=== PATIENT | female | born 1935 | race Caucasian/White ===

== ENCOUNTER → 2016-07-22 | Outpatient (CLI) | payer MEDICARE, OTHER ==
[~2016-07-22] MED LIST: ACET-2267 PO; ASCO-262 PO; ASP81CT PO; ASP81TEC PO; ATOR20TA66 PO; C250T PO; CALC-80 PO; CALC1TAB18 PO; CHOL2000 PO; CPR500T PO; CRV6.25T GT; CRV6.25T PO; FAMO20TA5 PO; FELO2.5T17 PO; FENO145T2 PO; FENO200C PO; GEMF600T3 PO; HYDR-3816 PO; HYDR118S10 PO; IBUP-2055 PO; LEVO500T69 PO; MECL25TA56 PO; NITR-65 PO; NTR.4SL SL; OMG1KC PO; ONDA-42 SL; ONDAN4ODT PO; OXYC-12 PO; OXYC-197 PO; PARO20TA57 PO; PEG4000S9 PO; RAMI2.5C PO; SULF-222 PO; VITAMIN C 1000MG PO
--- NOTE | 2016-07-22 13:52 | Diagnostic Imaging Report ---
INDICATION: Right shoulder injury. FINDINGS: AP, oblique and trans-scapular views of the right shoulder reveal surgical anchors in the lateral humeral head. There is [id number]-uc-rwxihegi acromioclavicular degenerative spurring. There is also mild marginal spurring about the glenohumeral joint with slight irregularity along the inferior cortex of the glenoid process. Otherwise, there is no evidence of fracture or other acute abnormality. IMPRESSION: There is degenerative spurring surrounding the shoulder girdle with mild cortical irregularity along the inferior margin of the glenoid process which may represent avulsion fracture. Clinical correlation with site of pain would be useful. If indicated, cross-sectional imaging could be performed for further assessment. Dictated by: Dictated on workstation # [id number]
== END ==
LOC: RAD 12:40
PROVIDERS: ATTEND Internal Medicine
DX: S49.91XA Unspecified injury of right shoulder and upper arm, initial encounter (principal); X58.XXXA Exposure to other specified factors, initial encounter; Y99.8 Other external cause status
CPT/HCPCS: 73030

== ENCOUNTER 2017-01-27 10:57 | Outpatient (CLI) | payer MEDICARE, OTHER ==
[~2017-01-27] VITALS: Ht 170.2 cm; Wt 79.4 kg
[2017-01-27] MEDS ORDERED: FAMO20TA3 PO (11:20)
[2017-01-27] MEDS ORDERED: ASPI-999 PO (11:20)
[2017-01-27] MEDS ORDERED: ASCO10006 PO (11:20)
[2017-01-27] MEDS ORDERED: ATOR40TA70 PO (11:20)
[2017-01-27] MEDS ORDERED: ALLO100T PO (11:20)
[2017-01-27] MEDS ORDERED: CARV6.252 PO (11:20)
== END 2017-01-27 11:21 ==
LOC: PREOP 10:57
PROVIDERS: ATTEND Surgery
DX: Z01.818 Encounter for other preprocedural examination (principal); K62.5 Hemorrhage of anus and rectum; Z80.0 Family history of malignant neoplasm of digestive organs

== ENCOUNTER 2017-01-31 08:25 | Day surgery (SDC) | payer MEDICARE, OTHER ==
[2017-01-30 08:48] VITALS: BP 139/73
[~2017-01-31] VITALS: Ht 170.2 cm; Wt 79.4 kg
[~2017-01-31 08:25] MED LIST changes: +ALLO100T PO; +ASCO10006 PO; +ASPI-999 PO; +ATOR40TA70 PO; +CARV6.252 PO; +FAMO20TA3 PO
[2017-01-31] MEDS ORDERED: NS IV 500 ML 500 ML IV ONE (08:30)
[2017-01-31] MEDS ORDERED: fentaNYL INJECTION 100 MCG/2 ML AMP ONE (09:00)
[2017-01-31] MEDS ORDERED: MIDAZOLAM 2 MG/2 ML (VERSED) VIAL ONE ×3 (09:00)
[2017-01-31] MEDS: fentaNYL INJECTION 100 MCG/2 ML AMP IVP PRN ×2 (09:07→09:16)
[2017-01-31] MEDS: MIDAZOLAM 2 MG/2 ML (VERSED) VIAL IVP PRN ×2 (09:08→09:17)
--- NOTE | 2017-01-31 09:31 | Conscious Sedation/ASA ---
Conscious Sedation Pre-Proced Time Reviewed: 08:45 ASA Class: 2 Airway Mallampati Classification: (ute appropriate class) I. II. III, IV Lungs Heart ASA score ASA 1: a normal healthy patient ASA 2: a patient with a mild systemic disease (mid diabetes, controlled hypertension, obesity ASA 3: a patient with a severe systemic disease that limits activity (angina , COPD, prior Myocardial infarction) ASA 4: a patient with an incapacitating disease that is a constant threat to life (CHF, renal failure) ASA 5: a moribund patient not expected to survive 24 hrs. (ruptured aneurysm) ASA 6: a declared brain patient whose organs are being harvested. For emergent operations, add the letter E after the classification Grade 1 Sedation Plan: Discussed options with patient/fam Note The patient is an appropriate candidate to undergo the planned procedure, sedation, and anesthesia. The patient immediately re-assessed prior to indication. KYLE FUCHS MD Jan 31, 2017 9:31 am
--- NOTE | 2017-01-31 09:34 | Endo Procedure Record ---
Endo Procedure Report Date of Procedure Jan 31, 2017 Surgeon (s) KYLE FUCHS MD Post Procedure/Op Diagnosis 1.sigmoid diverticulosis 2. Prolapsing hemorrhoids Procedure Performed colonoscopy to cecum Rubber band ligation of hemorrhoids 2 Description of Procedure Anesthesia Type: Conscious Sedation Specimen(s) collected/removed none Description of the Procedure Indication for procedure: This lady presented with rectal bleeding and a history of hemorrhoids. In addition, she reported family history of colon cancer and a personal history of adenomatous polyps. Colonoscopy to rule out polyps and possibly address the hemorrhoids using rubber band ligation. Informed consent was obtained after reviewing the procedure in detail. Description of the procedure: She was placed in left lateral decubitus position and her vital signs were monitored. Conscious sedation was achieved using Versed and fentanyl. Examination of the perianal area revealed external hemorrhoids and multiple skin tags. Digital examination revealed a lax anal sphincter. The colonoscope was then introduced in the rectum and advanced all the way up to the cecum. It was then withdrawn slowly and the mucosa examined in a systematic fashion. Findings: Internal hemorrhoids, the source of her bleeding Sigmoid diverticulosis The hemorrhoids were managed by rubber band ligation at 3 and 7 o'clock positions. She tolerated the procedure well and was taken back to the nursing area in a stable condition. Impression: Rectal bleeding due to hemorrhoids. Rubber band ligation completed. Copies To: REGINA DAVENPORT XAVIER M MD Jan 31, 2017 9:34 am
--- NOTE | 2017-01-31 09:36 | Discharge Inst-Simple/Standard ---
Discharge Inst-Standard Discharge Medications New, Converted or Re-Newed RX: Other Patient Instructions/Follow Up Plan of Care/Instructions/FU: F/U PRN Activity as Tolerated: Yes Discharge Diet: No Restrictions KYLE FUCHS MD Jan 31, 2017 9:36 am
[2017-01-31 09:45] VITALS: BP 150/65
[2017-01-31 10:15] VITALS: BP 149/76
[2017-01-31 10:50] VITALS: BP 149/76
== END 2017-01-31 10:50 | disposition home or self-care (01) ==
LOC: ENDO 08:25
PROVIDERS: ATTEND Surgery
DX: K57.30 Diverticulosis of large intestine without perforation or abscess without bleeding (principal); K64.8 Other hemorrhoids; Z80.0 Family history of malignant neoplasm of digestive organs; Z86.010 Personal history of colon polyps; Z79.82 Long term (current) use of aspirin; Z79.899 Other long term (current) drug therapy

== ENCOUNTER 2017-03-15 12:17 | Emergency (ER) | payer MEDICARE, OTHER ==
[~2017-03-15] VITALS: Ht 167.6 cm; Wt 78.5 kg
[2017-03-15] MEDS ORDERED: MULT-1029 PO (12:36)
[2017-03-15] MEDS ORDERED: ATOR20TA66 PO (12:36)
--- NOTE | 2017-03-15 13:46 | Diagnostic Imaging Report ---
PROCEDURE: CT head, face, and cervical spine without contrast. TECHNIQUE: Multiple contiguous axial images were obtained through the head, neck, and facial bones without the use of intravenous contrast. Sagittal and coronal reformations through the cervical spine and facial bones were also performed. INDICATION: Fall. FINDINGS: CT head: There is no intracranial hemorrhage, edema or mass effect. There is a mild periventricular and deep white hypodensities compatible with chronic microvascular changes. No hydrocephalus. No extra-axial fluid collection is seen. The calvarium appears grossly unremarkable. CT face: There is a minimally displaced fracture seen along the left nasal bone. There is mild mucosal thickening in the inferior aspect of the maxillary sinuses bilaterally. The osteomeatal complexes are patent. There is no hemorrhage. No sinus wall fracture is identified. The zygomatic arches appear intact. The ethmoid air cells and frontal sinuses are clear. The sphenoidal sinuses are clear. The mastoid air cells and middle ear cavities are clear. The orbital palma are intact. Structures within the orbits appear symmetric with no hematoma or abnormality in the extraocular muscles, the optic nerves or the globes seen. There is advanced degenerative changes in the left temporomandibular joint. CT cervical spine: There is straightening of the lordotic curvature which could be related to muscle spasm or its positional. There is preserved vertebral body heights. The alignment at the posterior spinal line, at the facet joints, and at the lateral masses of C1 and C2 is satisfactory. There is no widening of the predental space. 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 This is associated with significant spinal canal stenosis reducing the AP dimension of the canal to 5.5 mm at this level. There is also a prominent disc herniation and osteophytes at C5/6 and C6-7 levels with at least mild spinal canal stenosis at these levels. There is also significant foramina stenosis, severe bilaterally at C4/5 and moderate severe bilateral at C5/6 and C3/4 levels. No fracture is seen. IMPRESSION: CT head: No intracranial hemorrhage. CT maxillofacial: Minimally displaced right nasal bone fracture. CT cervical spine: Advanced degenerative changes with suggestion of multilevel high-grade spinal canal and foramina stenosis. No fracture seen. Dictated by: Dictated on workstation # [id number]
[2017-03-15] MEDS ORDERED: CEPH-507 PO (14:07)
--- NOTE | 2017-03-15 14:07 | ED Head Injury ---
General Chief Complaint: Trauma-Non Activation Stated Complaint: FACIAL LAC FROM FALL Nursing Triage Note: pt reports she fell outside at home, she tripped et struck her nose et forehead. c/o neck et nasal pain. abrasion noted to forehead et bridge of nose. pt reports she has had epistaxis as well. denies loc. Source: patient Exam Limitations: no limitations History of Present Illness Time seen by provider: 14:03 Initial Comments To ER with reports of a fall at home. She was outside burning trash when she turned around tripped and fell striking her face on the ground. No loss of consciousness. No headache, dizziness or memory loss. No vomiting. She did have epistaxis. Occurred: just prior to arrival Severity: moderate Allergies and Home Medications Allergies Coded Allergies: Penicillins (Unverified Allergy, Intermediate, HIVES, 07/04/10) latex (Unverified Allergy, Unknown, RASH, 08/07/13) Home Medications Allopurinol 100 Mg Tablet, 100 MG PO BID, (Reported) Ascorbic Acid 1,000 Mg Tablet, 1,000 MG PO DAILY, (Reported) Aspirin 81 Mg Tab.chew, 81 MG PO DAILY, (Reported) Atorvastatin Calcium 20 Mg Tablet, 20 MG PO DAILY, (Reported) Carvedilol 6.25 Mg Tablet, 6.25 MG PO BID, (Reported) Famotidine 20 Mg Tablet, 20 MG PO HS, (Reported) Multivit-Min/FA/Lycopene/Lut 1 Each Tablet, 1 EACH PO DAILY, (Reported) Constitutional: see HPI Eyes: No Symptoms Reported Ears, Nose, Mouth, Throat: no symptoms reported Respiratory: no symptoms reported Cardiovascular: no symptoms reported Genitourinary: no symptoms reported Musculoskeletal: no symptoms reported Skin: no symptoms reported Psychiatric/Neurological: No Symptoms Reported Past Zyxpfrs-Mdewfm-Ikarem Hx Patient Social History Alcohol Use: Denies Use Recreational Drug Use: No Smoking Status: Never a Smoker Recent Foreign Travel: No Contact w/Someone Who Travel: No Recent Infectious Disease Expo: No Recent Hopitalizations: No Immunizations Up To Date Date of Pneumonia Vaccine: May 11, 2011 Date of Influenza Vaccine: Feb 16, 2017 Seasonal Allergies Seasonal Allergies: No Surgeries History of Surgeries: Yes (ROTATOR CUFF, ANKLE SURGERY FOR BROKEN BONE) Surgeries: CABG, Orthopedic, Tonsillectomy Respiratory History of Respiratory Disorde: Yes Respiratory Disorders: Pneumonia Cardiovascular History of Cardiac Disorders: Yes (CABG X5) Cardiac Disorders: High Cholesterol, Hypertension Neurological History of Neurological Disord: No Reproductive System Hx Reproductive Disorders: No Sexually Transmitted Disease: No HIV/AIDS: No Female Reproductive Disorders: Denies ACTIVITY THERAPIST History: Menopausal Gastrointestinal History of Gastrointestinal Di: No (REFLUX AT TIMES) Gastrointestinal Disorders: Gastroesophageal Reflux, Polyps Musculoskeletal History of Musculoskeletal Dis: Yes (ARTHRITIS) Musculoskeletal Disorders: Arthritis Endocrine History of Endocrine Disorders: No HEENT HEENT Disorders: Cataract Loss of Vision: Denies Hearing Impairment: Denies Cancer History of Cancer: No Psychosocial History of Psychiatric Problem: No Integumentary History of Skin or Integumenta: No Blood Transfusions History of Blood Disorders: No Adverse Reaction to a Blood Tr: No (HAS HAD BLOOD IN 1958 WITH NO PROBLEMS) Family Medical History Significant Family History: Heart Disease Physical Exam Vital Signs Vital Sign - Last 12Hours 03/15/17 12:30 Temp 98.5 Pulse 74 Resp 16 B/P (MAP) 184/81 Capillary Refill : Less Than 3 Seconds General Appearance: WD/WN, no apparent distress HEENT: PERRL/EOMI, normal ENT inspection, TMs normal, other (dried blood in the left there. This was suctioned out to evaluate the septum for hematoma. There is no hematoma seen. There is a small area of bleeding the most anterior portion of the left nasal ala.) Neck: non-tender, full range of motion Respiratory: normal breath sounds, no respiratory distress, no accessory muscle use Gastrointestinal: non tender, soft Extremities: normal range of motion, non-tender Psychiatric: alert, oriented x 3 Crainal Nerves: normal hearing, normal speech, PERRL Progress/Results/Core Measures Results/Orders Vital Signs/I&O Vital Sign - Last 12Hours 03/15/17 12:30 Temp 98.5 Pulse 74 Resp 16 B/P (MAP) 184/81 Blood Pressure Mean: 115 Departure Communication (Admissions) Progress Notes Cervical collar removed at 1400. There was a small puncture wound to the midline bridge of the nose. This was large enough that it didn't need closure so we glued this after scrubbing with saline and irrigating with the same. Impression Impression: Primary Impression: Epistaxis Additional Impression: Nasal fracture Disposition: 01 HOME, SELF-CARE Condition: Improved Departure-Patient Inst. Decision time for Depature: 14:06 Referrals: REGINA DAVENPORT DO (PCP/Family) Primary Care Physician Patient Instructions: Nose Fracture (DC) Add. Discharge Instructions: 1. Return to ER for any concerns as headache, vomiting, inability to stop the bleeding from her nose. Follow-up with Dr. Persaud from ear nose and throat for any concerns. All discharge instructions reviewed with patient and/or family. Voiced understanding. Scripts Cephalexin (Keflex) 500 Mg Capsule 500 MG PO TID, #15 CAP Prov: JOELLEN CARDONA APRN 03/15/17 JOELLEN CARDONA APRN Mar 15, 2017 14:07
[2017-03-15 14:27] VITALS: BP 166/94
== END 2017-03-15 14:28 | disposition home or self-care (01) ==
LOC: EDUNIT# 12:17 → ER 12:19
DX: S02.2XXA Fracture of nasal bones, initial encounter for closed fracture (principal); E78.00 Pure hypercholesterolemia, unspecified; I10 Essential (primary) hypertension; K21.9 Gastro-esophageal reflux disease without esophagitis; M19.90 Unspecified osteoarthritis, unspecified site; Z82.49 Family history of ischemic heart disease and other diseases of the circulatory system; Z86.010 Personal history of colon polyps; Z79.82 Long term (current) use of aspirin; Z95.1 Presence of aortocoronary bypass graft; Z90.89 Acquired absence of other organs; Z87.01 Personal history of pneumonia (recurrent); W01.10XA Fall on same level from slipping, tripping and stumbling with subsequent striking against unspecified object, initial encounter
CPT/HCPCS: 12011; 70450; 70486; 72125

== ENCOUNTER → 2018-07-03 | Outpatient (CLI) | payer MEDICARE, OTHER ==
[~2018-07-03] MED LIST changes: +CEPH-507 PO; +GEMF600T8 PO; +HYDR-34 PO; -HYDR-3816 PO; +MULT-1029 PO; -OXYC-197 PO; +OXYC1TAB87 PO
--- NOTE | 2018-07-03 12:14 | Diagnostic Imaging Report ---
INDICATION: Disorientation. TECHNIQUE: PA and lateral views of the chest were obtained. COMPARISON: 08/12/2015. FINDINGS: The heart size and pulmonary vascularity are within normal limits. There is no evidence of pneumothorax or consolidation. There is mildly increased density along the superior margin of the left pulmonary hilum. No significant pleural fluid is seen. Note is made of compression fracture deformities of mid and lower thoracic vertebrae. IMPRESSION: Small focal region of increased density along the superior margin of the left hilum. This should be further evaluated on short-term radiographic followup or possible CT imaging. There are also chronic appearing compression deformities involving thoracic vertebrae. Dictated by: Dictated on workstation # [id number]
== END ==
LOC: RAD 11:41
PROVIDERS: ATTEND Internal Medicine
DX: J98.4 Other disorders of lung (principal); M43.8X4 Other specified deforming dorsopathies, thoracic region; R07.89 Other chest pain
CPT/HCPCS: 71046

== ENCOUNTER → 2018-07-12 | Outpatient (CLI) | payer MEDICARE, OTHER ==
--- NOTE | 2018-07-12 18:05 | Diagnostic Imaging Report ---
PROCEDURE: CT chest without contrast. TECHNIQUE: Multiple contiguous axial images were obtained through the chest without the use of intravenous contrast. INDICATION: Sternal chest pain. History of previous of median sternotomy for cardiac surgery. COMPARISON: Chest radiograph 07/03/2018. FINDINGS: Patient is post sternotomy. No significant parasternal inflammatory changes or fluid collections. There appears to be bony fusion across the sternotomy. Heart size upper limits of normal with surgical changes of coronary artery bypass. No significant pericardial effusion. The thoracic aortic contour unremarkable with minimal wall calcification. Evaluation of the mediastinal structures is limited given lack of contrast. Definitive pathologically enlarged mediastinal and/or hilar lymph nodes however are not suggested. Lung centeno are clear. Minimal pleural thickening noted about the anterior aspect of left hemithorax. There is some nodularity along the minor fissure plane anteriorly in the right mid hemithorax likely of no significance. No significant pleural effusion. Stomach is moderately distended with retained gastric contents likely owing to recent meal ingestion. Rather marked likely chronic changes about the thoracic spine. This includes loss of overall vertebral body height, anteriorly wedged vertebral bodies, as well as marked thoracic spondylosis. Endplate osteophyte formation and bridging formation. Posterior elements intact and normal alignment. No high-degree osseous narrowing of the neural foramina and/or spinal canal. IMPRESSION: 1. Negative for acute abnormality about the chest. 2. Post sternotomy changes. The sternotomy margins appear unremarkable. 3. No definitive abnormality in and around the left hilum on noncontrast imaging. Dictated by: Dictated on workstation # [id number]
== END ==
LOC: RAD 12:00
PROVIDERS: ATTEND Internal Medicine
DX: R07.89 Other chest pain (principal); Z98.890 Other specified postprocedural states; Z95.1 Presence of aortocoronary bypass graft
CPT/HCPCS: 71250

== ENCOUNTER 2022-03-17 13:59 | Emergency (ER) | payer MEDICARE, OTHER ==
[~2022-03-17] VITALS: Ht 168 cm; Wt 75.7 kg
[~2022-03-17 13:59] MED LIST changes: +ASCO100024 PO; -ASCO10006 PO; -GEMF600T8 PO; +GEMF600T88 PO; -IBUP-2055 PO; +IBUP-2473 PO
[2022-03-17 14:33] LABS: BASOPHILS % (AUTO) 1 % (0-10); EOSINOPHILS # (AUTO) 0.2 10^3/uL (0.0-0.3); EOSINOPHILS % (AUTO) 3 % (0-10); HEMATOCRIT 43 % (35-52); HEMOGLOBIN 14.4 g/dL (11.5-16.0); LYMPHOCYTES # (AUTO) 1.2 10^3/uL (1.0-4.0); LYMPHOCYTES % (AUTO) 18 % (12-44); MEAN CORPUSCULAR HEMOGLOBIN 29 pg (25-34); MEAN CORPUSCULAR HGB CONC 33 g/dL (32-36); MEAN CORPUSCULAR VOLUME 88 fL (80-99); MEAN PLATELET VOLUME 11.9 fL (9.0-12.2); MONOCYTES # (AUTO) 0.9 10^3/uL (0.0-1.0); MONOCYTES % (AUTO) 14 % (0-12); NEUTROPHILS # (AUTO) 4.1 10^3/uL (1.8-7.8); NEUTROPHILS % (AUTO) 64 % (42-75); PLATELET COUNT 165 10^3/uL (130-400); WHITE BLOOD COUNT 6.4 10^3/uL (4.3-11.0)
[2022-03-17 14:49] LABS: ALBUMIN 3.8 GM/DL (3.2-4.5); POTASSIUM 4.6 MMOL/L (3.6-5.0)
[2022-03-17 14:50] LABS: CALCIUM 9.4 MG/DL (8.5-10.1)
[2022-03-17 14:51] LABS: TOTAL PROTEIN 7.2 GM/DL (6.4-8.2)
[2022-03-17 14:52] LABS: PROTHROMBIN TIME PATIENT 13.3 SEC (12.2-14.7)
[2022-03-17 14:53] LABS: BILIRUBIN,TOTAL 0.4 MG/DL (0.1-1.0)
[2022-03-17 14:55] LABS: CREATININE SERUM 1.32 MG/DL (0.60-1.30)
[2022-03-17 14:58] LABS: MAGNESIUM 1.8 MG/DL (1.6-2.4)
--- NOTE | 2022-03-17 15:09 | Diagnostic Imaging Report ---
PROCEDURE: CT head and CT cervical spine without contrast. TECHNIQUE: Multiple contiguous axial images were obtained through the brain and cervical spine without the use of intravenous contrast. Sagittal and coronal reformations through the cervical spine were then performed. Auto Exposure Controls were utilized during the CT exam to meet ALARA standards for radiation dose reduction. INDICATION: Fall. Syncopal episode. Head and neck pain. COMPARISON: 03/15/2017. FINDINGS: CT head: No large acute territorial ischemia, mass, or hemorrhage. No midline shift or mass effect. Decreased attenuation is seen in the periventricular and subcortical white matter. The ventricles and cortical sulci are prominent. The basilar cisterns are patent and unremarkable. The calvarium is intact. Mucosal thickening is seen in the bilateral maxillary sinuses and left sphenoid sinus. The mastoid air cells are clear. CT cervical spine: No acute fracture or dislocation is seen in the cervical spine. No focal osseous lesions. Vertebral body heights are well-maintained. The craniocervical junction is well-maintained. Knggdlyj-ul-iboirn degenerative changes are seen in the cervical spine with disc osteophyte complexes and uncovertebral arthropathy. Soft tissues of the neck are unremarkable. The included lung apices are clear. IMPRESSION: 1. No hemorrhage or focal intra-axial mass. No CT evidence of large acute territorial ischemia. 2. No acute fracture or dislocation in the cervical spine. 3. Paranasal sinus disease involving the bilateral maxillary sinuses and left sphenoid sinus. Dictated by: Dictated on workstation # [id number]
--- NOTE | 2022-03-17 15:10 | Diagnostic Imaging Report ---
EXAMINATION: Chest 1 view HISTORY: Chest pain. Syncopal episode. COMPARISON: 08/12/2015. FINDINGS: The lung volumes are normal. No focal consolidation is seen. No large pleural effusion or pneumothorax is seen. The cardiac silhouette is prominent with post-CABG changes. No acute osseous abnormality is seen. IMPRESSION: 1. Stable cardiomegaly. No overt pulmonary edema. Dictated by: Dictated on workstation # [id number]
[2022-03-17] MEDS ORDERED: NS IV 1000 ML 1,000 ML IV SCH (15:30)
--- NOTE | 2022-03-17 16:03 | Diagnostic Imaging Report ---
PROCEDURE: US carotid duplex, bilateral. TECHNIQUE: Multiple real-time grayscale images were obtained over the carotid arteries in various projections, bilaterally. Additional spectral analysis and color Doppler duplex images were also obtained. INDICATION: Syncope There is atherosclerotic plaque present in both carotid bifurcations. The carotid arteries are tortuous. There is no significant alteration of waveforms or velocities. The ratios appear normal. The common internal/external carotid arteries appear normal. IMPRESSION: Mild atherosclerotic changes at both carotid bifurcations but no hemodynamically significant stenosis. Parameters based on the consensus panel Monae-Scale and Doppler ultrasound criteria published March 2003, Radiology, Volume 229. DOPPLER (peak systolic velocity M/S Right Left CCA .73 .98 ICA Proximal .64 .80 ICA Mid 1.05 .84 ICA Distal 1.20 .72 RATIO 1.63 .85 ECA .98 1.07 VERT .75 .38 Dictated by: Dictated on workstation # [id number]
--- NOTE | 2022-03-17 16:27 | ED General ---
General Chief Complaint: Dizziness/Syncope Stated Complaint: SYNCOPE Nursing Triage Note: PT TO [facility] VIA [facility] W REPORTS OF SYNCOPAL EPISODE LEADING TO FALL CUSTOMER QUALITY ENGINEER. PT UNSURE WHAT TIME SHE FELL, REPORTS SHE REMEMBERS BEING ON THE TOILET D/T DIARRHEA AND THEN SHE WAS ON THE FLOOR. PT A&OX4. 20G L HAND SL INITIATED BY [facility], PATENT UPON ARRIVAL TO ED. PT C/O NECK TIGHTNESS, C-COLLAR IN PLACE. Source of Information: Patient Exam Limitations: No Limitations History of Present Illness Date Seen by Provider: Mar 17, 2022 Time Seen by Provider: 14:00 Initial Comments This 86-year-old woman presents to the emergency room via EMS after having a syncopal episode and collapse at her home. She describes congestion and upper respiratory symptoms starting yesterday. She then developed diarrhea today. While she was on the stool having diarrhea, she apparently had a syncopal episode and fell off. She did complain of some neck pain to the fire department on arrival to the home. C-collar was applied. Patient is alert and conversational. She is denying any other symptoms at this time. Family thought she had some slurred speech at the home but that does not appear to be present now. Patient has a history of syncopal episodes including episodes while on the stool. She sees Dr. Lyons in [place] for cardiology services. Her primary care provider is Dr. Torre. She denies any chest pain or shortness of breath. She is due to have a carotid ultrasound study next week but she is uncertain if she has carotid stenosis. Allergies and Home Medications Allergies Coded Allergies: Penicillins (Unverified Allergy, Intermediate, HIVES, 07/04/10) latex (Unverified Allergy, Unknown, RASH, 08/07/13) Patient Home Medication List Home Medication List Reviewed: Yes Allopurinol (Allopurinol) 100 Mg Tablet, 100 MG PO BID, (Reported) Entered as Reported by: AVINASH AWAD on 01/27/17 112 Ascorbic Acid (Vitamin C) 1,000 Mg Tablet, 1,000 MG PO DAILY, (Reported) Entered as Reported by: AVINASH AWAD on 01/27/17 1120 Aspirin (Aspirin) 81 Mg Tab.chew, 81 MG PO DAILY, (Reported) Entered as Reported by: AVINASH AWAD on 01/27/17 1120 Atorvastatin Calcium (Atorvastatin Calcium) 20 Mg Tablet, 20 MG PO DAILY, (Reported) Entered as Reported by: BRENTON FELIZ on 03/15/17 1236 Carvedilol (Carvedilol) 6.25 Mg Tablet, 6.25 MG PO BID, (Reported) Entered as Reported by: AVINASH AWAD on 01/27/17 1120 Cephalexin (Keflex) 500 Mg Capsule, 500 MG PO TID Prescribed by: JOELLEN CARDONA on 03/15/17 1407 Famotidine (Acid Livestock Yard Supervisor (FAMOTIDINE)) 20 Mg Tablet, 20 MG PO HS, (Reported) Entered as Reported by: AVINASH AWAD on 01/27/17 1120 Multivit-Min/FA/Lycopene/Lut (Centrum Silver Tablet) 1 Each Tablet, 1 EACH PO DAILY, (Reported) Entered as Reported by: BRENTON FELIZ on 03/15/17 1236 Review of Systems Review of Systems Constitutional: no symptoms reported EENTM: see HPI Respiratory: no symptoms reported Cardiovascular: no symptoms reported Gastrointestinal: see HPI Genitourinary: no symptoms reported Musculoskeletal: see HPI Skin: no symptoms reported Psychiatric/Neurological: See HPI Hematologic/Lymphatic: No Symptoms Reported Immunological/Allergic: no symptoms reported Past Sdmmcic-Ugjmkj-Esftqo Hx Patient Social History Tobacco Use?: No Use of E-Cig and/or Vaping dev: No Substance use?: No Alcohol Use?: No Immunizations Up To Date Influenza Vaccine Up-to-Date: Yes; Up-to-Date First/Initial COVID19 Vaccinat: NONE Second COVID19 Vaccination Lex: NONE Third COVID19 Vaccination Date: NONE COVID19 Vaccine Compliance Counsel: NONE Seasonal Allergies Seasonal Allergies: No Past Medical History Surgeries: Yes (ROTATOR CUFF, ANKLE SURGERY FOR BROKEN BONE) CABG, Orthopedic, Tonsillectomy Respiratory: Yes Pneumonia Cardiac: Yes (CABG X5) Coronary Artery Disease, High Cholesterol, Hypertension Neurological: No : No Reproductive Disorders: No Female Reproductive Disorders: Denies ENTERTAINMENT MUSICIAN History: Menopausal Sexually Transmitted Disease: No HIV/AIDS: No Gastrointestinal: Yes Gastroesophageal Reflux, Polyps Musculoskeletal: Yes (ARTHRITIS) Arthritis Endocrine: No Cataract Loss of Vision: Denies Hearing Impairment: Denies Cancer: No Psychosocial: No Integumentary: No Blood Disorders: No Adverse Reaction/Blood Tranf: No (HAS HAD BLOOD IN 1958 WITH NO PROBLEMS) Family Medical History Heart Disease Physical Exam Vital Signs Vital Signs - First Documented 03/17/22 14:05 Temp 36.6 Pulse 69 Resp 20 B/P (MAP) 177/129 (145) Pulse Ox 98 O2 Delivery Room Air Capillary Refill : Less Than 3 Seconds Height, Weight, BMI Height: 5'6.00" Weight: 173lbs. 0.0oz. [id number]; 26.00 BMI Method:Stated General Appearance: No Apparent Distress, WD/WN HEENT: PERRL/EOMI, Normal ENT Inspection Neck: Normal Inspection; No JVD; Other (In c-collar) Respiratory: Lungs Clear, Normal Breath Sounds, No Accessory Muscle Use Cardiovascular: Regular Rate, Rhythm, No Edema, No Murmur Gastrointestinal: Normal Bowel Sounds, Non Tender, Soft; No Distended Extremity: Normal Inspection, No Pedal Edema Neurologic/Psychiatric: Alert, Oriented x3, No Motor/Sensory Deficits, Normal Mood/Affect Skin: Normal Color, Warm/Dry Progress/Results/Core Measures Suspected Sepsis SIRS Temperature: Pulse: 69 Respiratory Rate: 20 Laboratory Tests 03/17/22 14:20: White Blood Count 6.4 Blood Pressure 177 /129 Mean: 145 Laboratory Tests 03/17/22 14:20: Creatinine 1.32H, INR Comment 1.0, Platelet Count 165, Total Bilirubin 0.4 Results/Orders Lab Results Laboratory Tests Test 03/17/22 14:20 03/17/22 14:26 Range/Units White Blood Count 6.4 4.3-11.0 10^3/uL Red Blood Count 4.89 3.80-5.11 10^6/uL Hemoglobin 14.4 11.5-16.0 g/dL Hematocrit 43 35-52 % Mean Corpuscular Volume 88 80-99 fL Mean Corpuscular Hemoglobin 29 25-34 pg Mean Corpuscular Hemoglobin Concent 33 32-36 g/dL Red Cell Distribution Width 13.3 10.0-14.5 % Platelet Count 165 130-400 10^3/uL Mean Platelet Volume 11.9 9.0-12.2 fL Immature Granulocyte % (Auto) 1 % Neutrophils (%) (Auto) 64 42-75 % Lymphocytes (%) (Auto) 18 12-44 % Monocytes (%) (Auto) 14 H 0-12 % Eosinophils (%) (Auto) 3 0-10 % Basophils (%) (Auto) 1 0-10 % Neutrophils # (Auto) 4.1 1.8-7.8 10^3/uL Lymphocytes # (Auto) 1.2 1.0-4.0 10^3/uL Monocytes # (Auto) 0.9 0.0-1.0 10^3/uL Eosinophils # (Auto) 0.2 0.0-0.3 10^3/uL Basophils # (Auto) 0.0 0.0-0.1 10^3/uL Immature Granulocyte # (Auto) 0.0 0.0-0.1 10^3/uL Prothrombin Time 13.3 12.2-14.7 SEC INR Comment 1.0 0.8-1.4 Activated Partial Thromboplast Time 35 24-35 SEC Sodium Level 135 135-145 MMOL/L Potassium Level 4.6 3.6-5.0 MMOL/L Chloride Level 101 98-107 MMOL/L Carbon Dioxide Level 21 21-32 MMOL/L Anion Gap 13 5-14 MMOL/L Blood Urea Nitrogen 23 H 7-18 MG/DL Creatinine 1.32 H 0.60-1.30 MG/DL Estimat Glomerular Filtration Rate 40 BUN/Creatinine Ratio 17 Glucose Level 188 H 70-105 MG/DL Calcium Level 9.4 8.5-10.1 MG/DL Corrected Calcium 9.6 8.5-10.1 MG/DL Magnesium Level 1.8 1.6-2.4 MG/DL Total Bilirubin 0.4 0.1-1.0 MG/DL Aspartate Amino Transf (AST/SGOT) 47 H 5-34 U/L Alanine Aminotransferase (ALT/SGPT) 27 0-55 U/L Alkaline Phosphatase 74 40-136 U/L Myoglobin 108.1 H 10.0-92.0 NG/ML Troponin I < 0.028 <0.028 NG/ML Total Protein 7.2 6.4-8.2 GM/DL Albumin 3.8 3.2-4.5 GM/DL Influenza Type A (RT-PCR) Not Detected Not Detecte Influenza Type B (RT-PCR) Not Detected Not Detecte SARS-CoV-2 RNA (RT-PCR) Detected H Not Detecte My Orders Orders - DAMON MCCARTHY MD Cbc With Automated Diff (03/17/22 14:04) Magnesium (03/17/22 14:04) Chest 1 View, Ap/Pa Only (03/17/22 14:04) Ekg Tracing (03/17/22 14:04) Comprehensive Metabolic Panel (03/17/22 14:04) Myoglobin Serum (03/17/22 14:04) Protime With Inr (03/17/22 14:04) Partial Thromboplastin Time (03/17/22 14:04) O2 (03/17/22 14:04) Monitor-Rhythm Ecg Trace Only (03/17/22 14:04) Ed Iv/Invasive Line Start (03/17/22 14:04) Troponin I [place] (03/17/22 14:04) Ct Head/Cervical Spine Wo (03/17/22 14:04) Covid 19 Inhouse Test (03/17/22 14:04) Influenza A And B By Pcr (03/17/22 14:04) Ekg Tracing (03/17/22 14:29) Us Carotid Terry Complete 20668 (03/17/22 14:30) Ns Iv 1000 Ml (Sodium Chloride 0.9%) (03/17/22 15:30) Rx-Nirmatrelvir/Ritonavir(Eua) (Rx-Paxlo (03/17/22 16:30) Vital Signs/I&O 03/17/22 03/17/22 14:05 16:48 Temp 36.6 Pulse 69 75 Resp 20 B/P (MAP) 177/129 (145) 167/80 Pulse Ox 98 O2 Delivery Room Air Capillary Refill : Less Than 3 Seconds Blood Pressure Mean: 145 Progress Note : Progress Note Patient tested positive for COVID-19. Carotid studies showed no stenosis. She was hydrated with a liter of IV fluid. EKG showed a sinus rhythm with first- degree AV block. We discussed the opportunity for Paxlovid. Patient excepted and the prescription was dispensed in the ER. Patient was stable for discharge home. ECG EKG #1: EKG Time: 14:22 Rate: 68 Rhythm: Normal Sinus Intervals: Normal ECG Impression: Normal Comment Probable sinus rhythm with no ischemic ST elevation or depression. No significant change from prior. No axis deviation. First-degree AV block. EKG #2: EKG Time: 14:24 Rate: 68 Rhythm: Normal Sinus Comment Probable sinus rhythm with no ST elevation or depression. No significant change from prior. No axis deviation. First-degree AV block. Diagnostic Imaging Diagonstic Imaging: Xray Plain Films/CT/US/NM/MRI: chest Comments NAME: LUIS FERNANDO YOUNG [employer] REC#: [id number] PT STATUS: REG ER : 1935 PHYSICIAN: DAMON MCCARTHY MD ADMIT DATE: 03/17/22/ER Signed Date of Exam:03/17/22 CHEST 1 VIEW, AP/PA ONLY EXAMINATION: Chest 1 view HISTORY: Chest pain. Syncopal episode. COMPARISON: 08/12/2015. FINDINGS: The lung volumes are normal. No focal consolidation is seen. No large pleural effusion or pneumothorax is seen. The cardiac silhouette is prominent with post-CABG changes. No acute osseous abnormality is seen. IMPRESSION: 1. Stable cardiomegaly. No overt pulmonary edema. Dictated by: Dictated on workstation # [id number] Dict: 03/17/22 1504 Trans: 03/17/[address] [facility] [id number] Interpreted by: MITZI LERMA DO Electronically signed by: MITZI LERMA DO 03/17/22 1515 Diagonstic Imaging: CT Plain Films/CT/US/NM/MRI: c-spine, head Comments NAME: LUIS FERNANDO YOUNG [employer] REC#: [id number] PT STATUS: REG ER : 1935 PHYSICIAN: DAMON MCCARTHY MD ADMIT DATE: 03/17/22/ER Signed Date of Exam:03/17/22 CT HEAD/CERVICAL SPINE WO PROCEDURE: CT head and CT cervical spine without contrast. TECHNIQUE: Multiple contiguous axial images were obtained through the brain and cervical spine without the use of intravenous contrast. Sagittal and coronal reformations through the cervical spine were then performed. Auto Exposure Controls were utilized during the CT exam to meet ALARA standards for radiation dose reduction. INDICATION: Fall. Syncopal episode. Head and neck pain. COMPARISON: 03/15/2017. FINDINGS: CT head: No large acute territorial ischemia, mass, or hemorrhage. No midline shift or mass effect. Decreased attenuation is seen in the periventricular and subcortical white matter. The ventricles and cortical sulci are prominent. The basilar cisterns are patent and unremarkable. The calvarium is intact. Mucosal thickening is seen in the bilateral maxillary sinuses and left sphenoid sinus. The mastoid air cells are clear. CT cervical spine: No acute fracture or dislocation is seen in the cervical spine. No focal osseous lesions. Vertebral body heights are well-maintained. The craniocervical junction is well-maintained. Wrhsvzsa-pn-socyck degenerative changes are seen in the cervical spine with disc osteophyte complexes and uncovertebral arthropathy. Soft tissues of the neck are unremarkable. The included lung apices are clear. IMPRESSION: 1. No hemorrhage or focal intra-axial mass. No CT evidence of large acute territorial ischemia. 2. No acute fracture or dislocation in the cervical spine. 3. Paranasal sinus disease involving the bilateral maxillary sinuses and left sphenoid sinus. Dictated by: Dictated on workstation # [id number] Dict: 03/17/22 1501 Trans: 03/17/22 1509 [id number] Interpreted by: MITZI LERMA DO Electronically signed by: MITZI LERMA DO 03/17/22 1509 Diagonstic Imaging: Ultrasound Plain Films/CT/US/NM/MRI: other (Carotid arteries) Comments NAME: LUIS FERNANDO YOUNG [facility] REC#: [id number] PT STATUS: REG ER : 1935 PHYSICIAN: DAMON MCCARTHY MD ADMIT DATE: 03/17/22/ER Signed Date of Exam:03/17/22 US CAROTID TERRY COMPLETE [id number] PROCEDURE: US carotid duplex, bilateral. TECHNIQUE: Multiple real-time grayscale images were obtained over the carotid arteries in various projections, bilaterally. Additional spectral analysis and color Doppler duplex images were also obtained. INDICATION: Syncope There is atherosclerotic plaque present in both carotid bifurcations. The carotid arteries are tortuous. There is no significant alteration of waveforms or velocities. The ratios appear normal. The common internal/external carotid arteries appear normal. IMPRESSION: Mild atherosclerotic changes at both carotid bifurcations but no hemodynamically significant stenosis. Parameters based on the consensus panel Monae-Scale and Doppler ultrasound criteria published March 2003, Radiology, Volume 229. DOPPLER (peak systolic velocity M/S Right Left CCA .73 .98 ICA Proximal .64 .80 ICA Mid 1.05 .84 ICA Distal 1.20 .72 RATIO 1.63 .85 ECA .98 1.07 VERT .75 .38 Dictated by: Dictated on workstation # [id number] Dict: 03/17/22 1601 Trans: 03/17/22 1634 [id number] [id number] Interpreted by: GABRIEL HOOVER MD Electronically signed by: GABRIEL HOOVER MD 03/17/22 1634 Departure Impression Primary Impression: COVID-19 Additional Impression: Syncope Qualified Codes: R55 - Syncope and collapse Disposition: 01 HOME, SELF-CARE Condition: Improved Departure-Patient Inst. Decision time for Depature: 16:23 Referrals: REGINA DAVENPORT DO (PCP/Family) Primary Care Physician Patient Instructions: COVID-19 ED, Nirmatrelvir and Ritonavir FDA Fact Sheet, Syncope (Fainting), Vasovagal Response (DC) Add. Discharge Instructions: You were diagnosed with COVID-19. Please complete the entire 10 doses of Paxlovid dispensed from the ER. Do not take atorvastatin on the days you take Paxlovid. Monitor blood sugars while you take this medication. If you develop any unusual muscle pain stop Paxlovid and call your doctor or return to the ER. Drink plenty of clear liquids to stay well-hydrated. You may take Tylenol (acetaminophen) up to 1000 mg every 6 hours as needed for pain or fever. Add ibuprofen sparingly 200 to 400 mg 2 or 3 times a day if needed for pain or fever not controlled by Tylenol. Avoid being sedentary for prolonged periods of time. Move often and change positions often. This will help improve breathing and prevent complications from COVID-19. If possible, check your oxygen saturations a few times daily or anytime you have increased shortness of breath. If you have any oxygen saturation less than 90% or if you have multiple oxygen saturation measurements less than 92%, return to the emergency room. Return to the emergency room if you have other worsening condition despite following these instructions. Your syncopal episode (passing out) was likely due to a vasovagal response while passing a bowel movement. Your carotid ultrasound today showed no serious narrowing that requires urgent attention. Let your doctor know that carotid ultrasound was performed in the ER so that your outpatient ultrasound can be canceled. All discharge instructions reviewed with patient and/or family. Voiced understanding. Copy Copies To 1: REGINA DAVENPORT DO Copies To 2: TRENTON TORRE MD, JOSHUA T MD Mar 17, 2022 16:27
[2022-03-17] MEDS ORDERED: RX-NIRMATRELVIR/RITONAVIR (PAXLOVID) #30 TABS PO SCH (16:30)
[2022-03-17 16:48] VITALS: BP 167/80
== END 2022-03-17 16:47 | disposition home or self-care (01) ==
LOC: EDUNIT# 13:59 → ER 14:00
DX: U07.1 COVID-19 (principal); R55 Syncope and collapse; Z91.040 Latex allergy status; Z87.01 Personal history of pneumonia (recurrent); Z28.310 Unvaccinated for COVID-19
CPT/HCPCS: 36415; 70450; 71045; 72125; 80053; 83735; 83874; 84484; 85025; 85610; 85730; 87636; 93005; 93880